=== PATIENT | female | born 1985 | race Caucasian/White ===

== ENCOUNTER 2017-12-20 23:46 | Emergency (ER) | payer BC ==
[~2017-12-20] VITALS: Ht 162.6 cm; Wt 94.5 kg
[~2017-12-20 23:46] MED LIST: ALPRAZOLAM0.25 M2 PO; CEFDINIR300 MG PO; DEXILANT60 MG PO; ORSYTHIA1 EACH PO; TYLENOL REGULA325 MG PO; ZANTAC300 MG PO; ZOFRAN ODT4 MG PO
[2017-12-21 02:30] VITALS: BP 113/75
== END 2017-12-21 02:31 | disposition home or self-care (01) ==
LOC: EME 23:46
DX: S93.601A Unspecified sprain of right foot, initial encounter (principal); X50.1XXA Overexertion from prolonged static or awkward postures, initial encounter; Y93.H9 Activity, other involving exterior property and land maintenance, building and construction; Y92.008 Other place in unspecified non-institutional (private) residence as the place of occurrence of the external cause
CPT/HCPCS: 73630; 99281; 99284